=== PATIENT | male | born 1945 | race Two or more races ===

== ENCOUNTER 2020-12-01 18:13 | Emergency (ER) | payer OTHER ==
[~2020-12-01] VITALS: Ht 180.3 cm; Wt 97.5 kg
[2020-12-01] MEDS ORDERED: ZESTRIL10 M1 (19:01)
[2020-12-01] MEDS ORDERED: ANTIVERT (19:02)
== END 2020-12-01 21:24 | disposition home or self-care (01) ==
LOC: ER 18:13
DX: R42 Dizziness and giddiness (principal); Z11.52 Encounter for screening for COVID-19

== ENCOUNTER 2021-10-05 21:57 | Emergency (ER) | payer OTHER ==
[~2021-10-05] VITALS: Ht 177.8 cm; Wt 88.9 kg
[~2021-10-05 21:57] MED LIST: ANTIVERT; ZESTRIL10 M1
[2021-10-05] MEDS ORDERED: ACID REDUCER20 M1 (22:10)
[2021-10-05] MEDS ORDERED: CIALIS5 MG (22:11)
[2021-10-06] MEDS ORDERED: LEVSIN/SL0.125 MG SL (04:52)
== END 2021-10-06 04:56 ==
LOC: ER 21:57
DX: R10.31 Right lower quadrant pain (principal); K80.20 Calculus of gallbladder without cholecystitis without obstruction; K44.9 Diaphragmatic hernia without obstruction or gangrene; I10 Essential (primary) hypertension

== ENCOUNTER 2022-09-22 12:56 | Emergency (ER) | payer OTHER ==
[~2022-09-22] VITALS: Ht 180.3 cm; Wt 86.2 kg
[~2022-09-22 12:56] MED LIST changes: +ACID REDUCER20 M1; +CIALIS5 MG; +LEVSIN/SL0.125 MG SL
== END 2022-09-22 15:52 | disposition home or self-care (01) ==
LOC: ER 12:56
DX: S00.83XA Contusion of other part of head, initial encounter (principal); S80.02XA Contusion of left knee, initial encounter; S80.01XA Contusion of right knee, initial encounter; S20.211A Contusion of right front wall of thorax, initial encounter; S40.021A Contusion of right upper arm, initial encounter; W18.39XA Other fall on same level, initial encounter; Y93.89 Activity, other specified; Y92.098 Other place in other non-institutional residence as the place of occurrence of the external cause; Y99.8 Other external cause status; I10 Essential (primary) hypertension; Z88.8 Allergy status to other drugs, medicaments and biological substances